=== PATIENT | female | born 2000 | race Hispanic/Latino ===

== ENCOUNTER 2020-12-20 05:30 | Inpatient (IN) | payer OTHER ==
[~2020-12-20 05:30] MED LIST: Acetaminophen 500 MG TAB PO PRN; Butorphanol Tartrate 1 MG/ML VIAL SLOW IVP PRN; Carboprost 250 MCG/ML AMP IM PRN; Diphenoxylate HCl/Atropine Tablet PO PRN; Docusate 100 MG CAP PO PRN; HYDROcodone/Acetaminophen 5/325 mg Tablet PO PRN; Ibuprofen 800 MG TAB PO PRN; Lidocaine 1% (PF) 30 ML VIAL SC PRN; Methylergonovine 0.2 MG/ML VIAL IM PRN; Misoprostol 200 MCG TAB PR PRN; Ondansetron PF 4 MG/2 ML Vial IVP PRN; Promethazine HCl 25 MG/ML VIAL IM PRN; hydrALAZINE 20 MG/ML VIAL SLOW IVP PRN
[2020-12-20 06:00] VITALS: BMI 34.2
[2020-12-20 06:39] LABS: Hemoglobin 8.9 g/dL (12.0-15.5); Mean Corpuscular HGB CONC 30.6 g/dL (32.0-36.0); Mean Corpuscular Hemoglobin 23.1 pg (27.0-33.0); Mean Corpuscular Volume 75.4 fl (81.6-98.3); Mean Platelet Volume 10.1 fl (7.4-10.4); Platelet Count 268 10x3/uL (150-450); RBC Distribution Width 17.8 % (11.5-14.5); Red Blood Cell (RBC) Count 3.86 10x6/uL (3.90-5.03); White Blood Cell (WBC) Count 9.7 10x3/uL (3.5-10.5)
[2020-12-20] MEDS ORDERED: NS w/ Oxytocin 30 units 500 ML IVPB PRN (06:50)
[2020-12-20] MEDS ORDERED: NS w/ Oxytocin 30 units 500 ML IVPB SCH ×2 (07:00)
[2020-12-20] MEDS: Misoprostol 100 MCG TAB VAG SCH ×2 (07:09→23:44)
[2020-12-20] MEDS: Lactated Ringer's 1,000 ML IV SCH ×3 (07:09→17:35)
[2020-12-20 07:32] LABS: Syphilis Antibody Nonreactive (Nonreactive); Syphilis Antibody Index 0.01 S/CO (<1.00 Non-Reactive)
[2020-12-20 07:34] LABS: Hep B Surf Ag Non-Reactive S/CO (NonReactive)
[2020-12-20 07:48] LABS: HBSAg Index 0.17 S/CO (0-0.99)
[2020-12-20] MEDS ORDERED: Fentanyl 4 mcg/Bup 0.1% Cadd 100 ML ONE (15:10)
[2020-12-21] MEDS ORDERED: Sodium Chloride 0.9% 1,000 ML IV SCH (01:15)
[2020-12-21] MEDS ORDERED: Milk Of Magnesia 30 ML UDCUP PO PRN ×2 (01:15→01:49)
[2020-12-21] MEDS ORDERED: NS / Oxytocin 40 units/1000ml 1,000 ML IV SCH (01:15)
[2020-12-21] MEDS ORDERED: Bisacodyl 10 MG SUPP PR PRN ×2 (01:15→01:49)
[2020-12-21] MEDS ORDERED: Promethazine HCl 25 MG/ML VIAL IM PRN (01:49)
[2020-12-21] MEDS ORDERED: hydrALAZINE 20 MG/ML VIAL SLOW IVP PRN (01:49)
[2020-12-21] MEDS ORDERED: Ondansetron PF 4 MG/2 ML Vial IVP PRN (01:49)
[2020-12-21] MEDS ORDERED: diphenhydrAMINE 25 MG CAP PO PRN (01:49)
[2020-12-21] MEDS ORDERED: Lanolin Ointment 7 GM TUBE TOP PRN (01:49)
[2020-12-21] MEDS ORDERED: Preparation H Ointment 28 GM TUBE PR PRN (01:49)
[2020-12-21] MEDS ORDERED: Benzocaine-Menthol 82.5 ML CAN TOP PRN (01:49)
[2020-12-21] MEDS ORDERED: HYDROcodone/Acetaminophen 5/325 mg Tablet PO PRN ×2 (01:49)
[2020-12-21] MEDS ORDERED: Methylergonovine 0.2 MG/ML VIAL IM PRN (01:49)
[2020-12-21] MEDS ORDERED: Zolpidem Tartrate 5 MG TAB PO PRN (01:49)
[2020-12-21] MEDS ORDERED: NS w/ Oxytocin 30 units 500 ML IV SCH (02:15)
[2020-12-21] MEDS: Misoprostol 100 MCG TAB VAG SCH (02:30)
[2020-12-21] MEDS: Lactated Ringer's 1,000 ML IV SCH (02:30)
[2020-12-21] MEDS ORDERED: Ibuprofen 800 MG TAB PO SCH (06:00)
[2020-12-21 07:46] LABS: Hemoglobin 8.2 g/dL (12.0-15.5); Mean Corpuscular HGB CONC 29.8 g/dL (32.0-36.0); Mean Corpuscular Hemoglobin 22.5 pg (27.0-33.0); Mean Corpuscular Volume 75.3 fl (81.6-98.3); Mean Platelet Volume 10.2 fl (7.4-10.4); Platelet Count 253 10x3/uL (150-450); RBC Distribution Width 17.6 % (11.5-14.5); Red Blood Cell (RBC) Count 3.65 10x6/uL (3.90-5.03); White Blood Cell (WBC) Count 12.3 10x3/uL (3.5-10.5)
[2020-12-21] MEDS ORDERED: Ferrous Sulfate 325 MG TAB PO SCH (08:00)
[2020-12-21] MEDS ORDERED: Adacel (T-DAP) 0.5 ML SYRINGE IM ONE (09:00)
[2020-12-21] MEDS ORDERED: Adacel (T-DAP) 0.5 ML SYRINGE IM SCH (09:00)
[2020-12-21] MEDS ORDERED: Varicella virus, LIVE 0.5 ML VIAL SC ONE (09:00)
[2020-12-21] MEDS ORDERED: Measles/Mumps/Rubella 10 MCG/0.5 ML VIAL SC ONE (09:00)
[2020-12-21] MEDS ORDERED: Docusate Calcium (SURFAK) 240 MG CAP PO SCH (09:00)
[2020-12-21] MEDS: Docusate Calcium (SURFAK) 240 MG CAP PO SCH ×2 (09:29→21:15)
[2020-12-21] MEDS: Ibuprofen 800 MG TAB PO SCH ×3 (09:29→21:14)
[2020-12-21] MEDS: Ferrous Sulfate 325 MG TAB PO SCH ×2 (09:29→18:11)
[2020-12-21] MEDS: Prenatal Vitamin 1 TAB PO SCH (09:29)
[2020-12-22] MEDS: Ibuprofen 800 MG TAB PO SCH (05:23)
[2020-12-22 07:50] VITALS: BP 115/77; TEMP 98
[2020-12-22] MEDS: Prenatal Vitamin 1 TAB PO SCH (09:49)
[2020-12-22] MEDS: Ferrous Sulfate 325 MG TAB PO SCH (09:49)
[2020-12-22] MEDS: Docusate Calcium (SURFAK) 240 MG CAP PO SCH (09:50)
== END 2020-12-22 11:57 | disposition home or self-care (01) | DRG 807 ==
LOC: CSHLD 05:55 → CSHPP 23:20
PROVIDERS: ADMIT Obstetrics & Gynecology; ATTEND Obstetrics & Gynecology
PROC: 3E0D7GC Introduction of Other Therapeutic Substance into Mouth and Pharynx, Via Natural or Artificial Opening (ICD-10-PCS; 2020-12-20)
PROC: 10E0XZZ Delivery of Products of Conception, External Approach (ICD-10-PCS; principal; 2020-12-21)
DX: O80 Encounter for full-term uncomplicated delivery (principal); Z37.0 Single live birth; Z3A.39 39 weeks gestation of pregnancy; Z20.822 Contact with and (suspected) exposure to COVID-19
CPT/HCPCS: 36415; 85027; 86780; 86850; 86900; 86901; 87340; J2590

== ENCOUNTER 2022-03-18 23:00 | Emergency (ER) | payer OTHER | END 2022-03-19 01:22 | disposition home or self-care (01) | LOC: CSHERS 23:00 | DX: J06.9 Acute upper respiratory infection, unspecified (principal); Z20.822 Contact with and (suspected) exposure to COVID-19 | CPT/HCPCS: 99283; U0003; U0005 ==